=== PATIENT | female | born 1950 | race Caucasian/White ===

== ENCOUNTER 2017-08-07 20:29 | Emergency (ER) | payer MEDICARE, BC ==
[~2017-08-07] VITALS: Ht 157.5 cm; Wt 93.9 kg
[2017-08-07 20:58] VITALS: BP 161/101
[2017-08-07] MEDS ORDERED: ONDANSETRON PF 4 MG/2 ML VIAL. ONE (21:23)
[2017-08-07 22:18] LABS: BASO % 0 % (0-3); EOS # 0.1 x10^3/uL (0.0-0.7); EOS % 1 % (0-3); HEMOGLOBIN 14.1 g/dL (12.0-15.5); LYMPH # 2.2 x10^3/uL (1.0-4.8); LYMPH % 25 % (24-48); MEAN CORPUSCULAR HEMOGLOBIN 29 pg (25-35); MEAN CORPUSCULAR HGB CONC 34 g/dL (31-37); MEAN CORPUSCULAR VOLUME 88 fL (79-100); MONO # 0.5 x10^3/uL (0.0-1.1); MONO % 5 % (0-9); NEUT % 68 % (31-73); PLATELET COUNT 237 x10^3/uL (140-400); RED BLOOD COUNT 4.79 x10^6/uL (3.50-5.40); RED CELL DISTRIBUTION WIDTH 13.6 % (11.5-14.5); WHITE BLOOD COUNT 8.8 x10^3/uL (4.0-11.0)
[2017-08-07 22:34] LABS: ALBUMIN 3.5 g/dL (3.4-5.0); CALCIUM 8.6 mg/dL (8.5-10.1); CREATININE 0.9 mg/dL (0.6-1.0); GFR 62.1; POTASSIUM 3.4 mmol/L (3.5-5.1); TOTAL BILIRUBIN 0.1 mg/dL (0.2-1.0); TOTAL PROTEIN 7.1 g/dL (6.4-8.2)
--- NOTE | 2017-08-07 22:52 | PHYS DOC ---
General Chief Complaint: NAUSEA/VOMITING/DIARRHEA Stated Complaint: N/V LIGHT HEADED Time Seen by MD: 20:34 Problems: History of Present Illness Allergies: Coded Allergies: No Known Drug Allergies (Unverified , 08/07/17) Orders, Labs, Meds EKG: Normal sinus rhythm 72 bpm, leftward axis no ST elevation. Interpreted by me. Urine dipstick: Positive for leukocyte esterase and trace of blood Departure Time of Disposition: 00:52 Disposition: 01 HOME, SELF-CARE Diagnosis: UTI, hypokalemia Condition: IMPROVED Patient Instructions: Hypokalemia-Brief, Urinary Tract Infection, [id number] Additional Instructions: Please review the patient education materials given by ED staff. Aggressive hydration to prevent dehydration. ED one banana daily until follow-up with your doctor. Prescription: Cipro Follow-up with your doctor in 7-10 days for recheck of symptoms and urine culture results. Return to ED with new or changing symptoms. KEYLA GUERRA DO Aug 07, 2017 22:52
[2017-08-08] MEDS ORDERED: POTASSIUM CHLORIDE 20 MEQ TABLET.ER. PO ONE
[2017-08-08] MEDS ORDERED: CIPR500T94 PO (00:51)
[2017-08-08 01:04] LABS: BILIRUBIN,URINE NEG (NEG); CLARITY,URINE HAZY; COLOR,URINE YELLOW; GLUCOSE,URINE NEG (NEG); NITRITE,URINE NEG (NEG); UROBILINOGEN,URINE 0.2 mg/dL (0.2 mg/dL)
[2017-08-08 01:05] LABS: BACTERIA,URINE FEW /HPF (0-FEW); RBC,URINE 0 /HPF (0-2); SQUAMOUS EPITHELIAL CELL,UR FEW /LPF
[2017-08-08] MEDS ORDERED: CIPROFLOXACIN HCL 500 MG TABLET PO ONE (01:15)
--- NOTE | 2017-08-08 07:45 | EKG ---
[address] [address] Test Date: 2017-08-07 Test Time: 22:17:07 Pat Name: YASIR CAREY Department: Room: Gender: F Fur Sewer: BERNADINE : 1950 Requested By: KEYLA GUERRA Order Number: [id number] Reading MD: Measurements Intervals [place] Rate: 67 P: 33 KS: 192 QRS: -6 QRSD: 86 T: 14 QT: 416 QTc: 443 Interpretive Statements SINUS RHYTHM LEFTWARD AXIS R-S TRANSITION ZONE IN V LEADS DISPLACED TO THE LEFT OTHERWISE NORMAL ECG RI6.01 Unconfirmed report No previous ECG available for comparison
--- NOTE | 2017-08-08 07:56 | RAD ---
Chest, 2 views, 08/07/2017: History: Dizziness, nausea The heart size and pulmonary vascularity are normal. There is mild tortuosity of the thoracic aorta. No pulmonary infiltrates are seen. There is no evidence of pleural fluid. IMPRESSION: No acute cardiopulmonary abnormality is detected.
== END 2017-08-08 01:12 | disposition home or self-care (01) ==
LOC: ER 20:29
DX: N39.0 Urinary tract infection, site not specified (principal); E87.6 Hypokalemia
CPT/HCPCS: 36415; 71020; 80053; 81001; 82550; 83735; 83880; 84484; 85025; 85379; 87086; 93005; 99285-25

== ENCOUNTER → 2020-05-22 | Outpatient (CLI) | payer MEDICARE, BC ==
[~2020-05-22] MED LIST: CIPR500T94 PO
--- NOTE | 2020-05-27 08:39 | RAD ---
DATE: 05/22/2020 8:53 AM EXAM: MAMMO DONALD SCREENING BILATERAL HISTORY: Screening COMPARISON: 01/11/2019 Bilateral CC and MLO views of the breasts were performed. Bilateral breast tomosynthesis was performed in CC and MLO projections. This study was interpreted with the benefit of Computerized Aided Detection (CAD). FINDINGS: Breast Density: FATTY The Breast Parenchyma is primarily fatty replaced. Breast parenchyma level density A. No suspicious masses, microcalcifications or architectural distortion is present to suggest malignancy in either breast. The visualized axillae are unremarkable. IMPRESSION: No mammographic evidence of malignancy. BI-RADS CATEGORY: 1 NEGATIVE RECOMMENDED FOLLOW-UP: 12M 12 MONTH FOLLOW-UP Annual screening mammography is recommended, unless clinically indicated sooner based on symptoms or change in physical exam. PQRS compliance statement: Patient information was entered into a reminder system with a target due date for the next mammogram. Mammography is a sensitive method for finding small breast cancers, but it does not detect them all and is not a substitute for careful clinical examination. A negative mammogram does not negate a clinically suspicious finding and should not result in delay in biopsying a clinically suspicious abnormality. "Our facility is accredited by the [employer] Mammography [employer]."
== END ==
LOC: MAMMO 08:45
PROVIDERS: ATTEND Obstetrics & Gynecology
DX: Z12.31 Encounter for screening mammogram for malignant neoplasm of breast (principal)
CPT/HCPCS: 77063; 77067

== ENCOUNTER 2021-04-17 13:37 | Emergency (ER) | payer MEDICARE, BC ==
[~2021-04-17] VITALS: Ht 157.5 cm; Wt 93.2 kg
[2021-04-17 13:58] VITALS: BP 161/92
--- NOTE | 2021-04-17 14:04 | PHYS DOC ---
Past History Past Medical History: No Pertinent History (LEROY WHITE APRN) Alcohol Use: None Drug Use: None (LEROY WHITE APRN) General Adult EDM: Chief Complaint: MECHANICAL FALL HPI: HPI: Patient is a 70-year-old female who presents to the ER following a fall that occurred yesterday. Patient reports she was walking up 2 steps and she fell backwards and hit the back of her head on concrete floor. Patient denies any loss of consciousness. She denies being on any blood thinners. She is reporting right rib pain, right elbow pain and generalized hospital head pain. Patient denies loss of bowel or bladder, confusion or altered mental status, saddle anesthesias, vision changes, nausea, vomiting. (LEROY WHITE APRN) Review of Systems: Review of Systems: 14 body systems of the review of systems have been reviewed. See HPI for pertinent positive and negative responses, otherwise all other systems are n egative, nonpertinent or noncontributory (LEROY WHITE APRN) Allergies: Allergies: Allergies Coded Allergies Type Severity Reaction Last Updated Verified No Known Drug Allergies 08/07/17 No (LEROY WHITE APRN) Physical Exam: PE: Constitutional: Well developed, well nourished, no acute distress, non-toxic appearance. [] HENT: Normocephalic, atraumatic,, no hematomas noted, no lacerations or wounds bilateral external ears normal, oropharynx moist, no oral exudates, nose normal. [] Eyes: PERRLA, EOMI, conjunctiva normal, no discharge. [] Neck: Normal range of motion, no bony spinal tenderness, supple, no stridor. [] Cardiovascular:Heart rate regular rhythm, no murmur [] Lungs & Thorax: Bilateral breath sounds clear to auscultation, pain with palpation noted to anterior right rib, no crepitus, no flail chest, no obvious deformities, no ecchymosis or wounds [] Abdomen: Bowel sounds normal, soft, no tenderness, no masses, no pulsatile masses. [] Skin: Warm, dry, no erythema, no rash. [] Back: No bony spinal tenderness with palpation, normal range of motion Extremities: No tenderness, no cyanosis, no clubbing, ROM intact, no edema. Right upper extremity: pain with palpation of right elbow, no swelling, no wounds, no obvious deformity, range of motion intact, neurovascularly intact [] Neurologic: Alert and oriented X 3, normal motor function, normal sensory function, no focal deficits noted. [] Psychologic: Affect normal, judgement normal, mood normal. [] (LEROY WHITE APRN) EKG: EKG: [] (LEROY WHITE APRN) Radiology/Procedures: Radiology/Procedures: PROCEDURE: RIBS BILAT 3V Exam: Bilateral ribs 2 views with AP chest INDICATION: Fall, rib pain TECHNIQUE: Frontal view of the chest with frontal and oblique views of the right and left ribs Comparisons: None FINDINGS: The cardiomediastinal silhouette and pulmonary vessels are within normal limits. The lung and pleural spaces are clear. No displaced rib fractures are identified. Several air-filled distended loops of small bowel in the visualized upper abdomen IMPRESSION: 1. No acute cardiopulmonary process. 2. No displaced rib fractures 3. Several air-filled distended loops of small bowel in the visualized upper abdomen. Correlate with symptomatology Electronically signed by: Daksha Madison MD (04/17/2021 4:21 PM) [facility] DICTATED AND SIGNED BY: DAKSHA MADISON MD DATE: 04/17/21 1619 CC: LEROY WHITE APRN; JERSON FELDER MD ~MTH0 0 []PROCEDURE: CT HEAD AND CERVICAL SPINE WO Exam Date: 04/17/2021 2:[address] HEAD AND C-SPINE WO Indication: Reason: fall / Spl. Instructions: / History: . One or more of the following dose reduction techniques were utilized: *Automated exposure control (AEC) *Adjustment of mA and/or kV according to patient size *Use of iterative reconstruction technique *CT scan done according to ALARA, or ALARA/IMAGE GENTLY EXAMINATION: CT OF THE HEAD WITHOUT CONTRAST INDICATION: Trauma, head injury, headache; TECHNIQUE: Noncontrast helical axial CT images of the head were obtained. FINDINGS: The ventricles and sulci are normal for the patient's stated age. There is no evidence of acute intracranial hemorrhage, extra-axial collection, mass effect, midline shift, or acute territorial infarct. No lesion of the skull base or the calvarium is seen. The visualized paranasal sinuses, mastoid air cells, and orbits are normal in appearance. IMPRESSION: No evidence for acute intracranial abnormality. EXAMINATION: CT OF THE CERVICAL SPINE WITHOUT CONTRAST Clinical Indication: Cervical spine pain after trauma Technique: Thin cut helical axial CT images through the cervical spine were obtained without contrast on a multi-detector CT scanner. Source data was then reconstructed into sagittal and coronal planes. Findings: Alignment is maintained without spondylolisthesis. Vertebral body heights are maintained without acute fracture. Mild multilevel degenerative changes are noted. No significant prevertebral soft tissue swelling is demonstrated. No severe osseous central canal stenosis is seen. Thyroid gland appears heterogeneously hypodense, likely secondary to underlying thyroid nodules. Impression: No evidence of acute cervical spine fracture or subluxation. Heterogeneous hypodense thyroid gland likely contains underlying thyroid nodules. Further thyroid workup and/or imaging can be performed as clinically indicated. Electronically signed by: Lukas Denney MD (04/17/2021 3:07 PM) [facility] DI[facility]ATED AND SIGNED BY: LUKAS DENNEY MD DATE: 04/17/21 1455 CC: LEROY WHITE APRN; JERSON FELDER MD ~MTH0 0 PROCEDURE: ELBOW RIGHT 3V Exam: Right elbow 2 views INDICATION: Fall, pain TECHNIQUE: Frontal, and lateral views of the right elbow Comparisons: None FINDINGS: Bone mineralization is normal. No acute or healed fractures. Soft tissues are unremarkable. Joint spaces are well-maintained. IMPRESSION: No acute osseous abnormality of the right elbow. Electronically signed by: Daksha Madison MD (04/17/2021 4:25 PM) [facility] DICTATED AND SIGNED BY: DAKSHA MADISON MD DATE: 04/17/21 1621 CC: LEROY WHITE APRN; JERSON FELDER MD ~MTH0 0 (LEROY WHITE APRN) Heart Score: C/O Chest Pain: No Risk Factors: Risk Factors: DM, Current or recent (<one month) smoker, HTN, HLP, family history of CAD, obesity. Risk Scores: Score 0 - 3: 2.5% MACE over next 6 weeks - Discharge Home Score 4 - 6: 20.3% MACE over next 6 weeks - Admit for Clinical Observation Score 7 - 10: 72.7% MACE over next 6 weeks - Early Invasive Strategies (LEROY WHITE APRN) Course & Med Decision Making: Course & Med Decision Making Pertinent Labs and Imaging studies reviewed. (See chart for details) [] Patient is a 70-year-old female being seen in the ER following a fall. Patient is complaining of right rib pain, right elbow pain, generalized head pain. Work-up in the ER consisted of CT scan of head, right elbow x-ray, rib x- ray. Imaging was negative for any acute findings in the ER. Patient advised to take Tylenol/ibuprofen at home and follow-up with her primary care provider. I discussed with patient all findings and diagnostic testing as well as the need to follow-up with PCP for further evaluation and treatment or return to the ER if any new or worsening symptoms. Strict return precautions were also discussed at length. Patient voiced understanding and agreement with the plan. Patient is hemodynamically stable at the time of disposition. (LEROY WHITE APRN) Dragon Disclaimer: Dragon Disclaimer: This electronic medical record was generated, in whole or in part, using a voice recognition dictation system. (LEROY WHITE APRN) Attending Co-Sign The patient was seen and interviewed as well as examined at the bedside. The chart was reviewed. The case was discussed. Agree with the plan of care. (EILEEN ORTEGA DO) Departure Departure: Impression: Primary Impression: Fall Qualified Codes: W19.XXXA - Unspecified fall, initial encounter Disposition: HOME / SELF CARE / HOMELESS Condition: GOOD Referrals: JERSON FELDER MD (PCP) Patient Instructions: Fall Prevention and Home Safety, Rib Contusion Additional Instructions: You were seen in the ER following a fall. Imaging was negative in the ER for any acute findings. You can apply ice to any painful areas and take Tylenol/ibuprofen for pain. Please follow-up with your primary care provider on Monday regarding your ER visit. If you develop worsening of your pain, confusion, inability to bear weight or ambulate, shortness of breath, chest pain, intractable nausea or vomiting, vision changes or any new or worsening symptoms please return to the ER. EMERGENCY DEPARTMENT GENERAL DISCHARGE INSTRUCTIONS Thank you for coming to [facility] (ED) today and trusting us with you care. We trust that you had a positivie experience in our Emergency Department. If you wish to speak to the department management, you may call the director at [phone]. YOUR FOLLOW UP INSTRUCTIONS ARE FOLLOWS: 1. Do you have a private Doctor? If you do not have a private doctor, please ask for a resource list of physicians or clinics that may be able to assist you with follow up care. 2. The Emergency Physician has interpreted your x-rays. The X-Ray specialist will also review them. If there is a change in the findings, you will be notified in 48 hours when at all possible. 3. A lab test or culture has been done, your results will be reviewed and you will be notified if you need a change in treatment. ADDITIONAL INSTRUCTIONS AND INFORMATION: 1. Your care today has been supervised by a physician who is specially trained in emergency care. Many problems require more than one evaluation for a complete diagnosis and treatment. We recommend that you schedule your follow up appointment as recommended to ensure complete treatment of you illness or injury. If you are unable to obtain follow up care and continue to have a problem, or if your condition worsens, we recommend that you return to the ED. 2. We are not able to safely determine your condition over the phone nor are we able to give sound medical advice over the phone. For these safety reasons, if you call for medical advice we will ask you to come to the ED for further evaluation. 3. If you have any questions regarding these discharge instructions please call the ED at [phone]. SAFETY INFORMATION: In the interest of safety, wellness, and injury prevention; we encourage you to wear your sealbelt, if you smoke; quite smoking, and we encourage family to use a protective helmet for bicycling and other sporting events that present an increased risk for head injury. IF YOUR SYMPTOMS WORSEN OR NEW SYMPTOMS DEVELOP, OR YOU HAVE CONCERNS ABOUT YOUR CONDITION; OR IF YOUR CONDITION WORSENS WHILE YOU ARE WAITING FOR YOUR FOLLOW UP APPOINTMENT; EITHER CONTACT YOUR PRIMARY CARE DOCTOR, THE PHYSICIAN WHOSE NAME AND NUMBER YOU WERE GIVEN, OR RETURN TO THE ED IMMEDIATELY. LEROY WHITE APRN Apr 17, 2021 14:04 EILEEN ORTEGA DO Apr 18, 2021 06:25
--- NOTE | 2021-04-17 15:10 | RAD ---
Exam Date: 04/17/2021 2:[address] HEAD AND C-SPINE WO Indication: Reason: fall / Spl. Instructions: / History: . One or more of the following dose reduction techniques were utilized: *Automated exposure control (AEC) *Adjustment of mA and/or kV according to patient size *Use of iterative reconstruction technique *CT scan done according to ALARA, or ALARA/IMAGE GENTLY EXAMINATION: CT OF THE HEAD WITHOUT CONTRAST INDICATION: Trauma, head injury, headache; TECHNIQUE: Noncontrast helical axial CT images of the head were obtained. FINDINGS: The ventricles and sulci are normal for the patient's stated age. There is no evidence of acute int racranial hemorrhage, extra-axial collection, mass effect, midline shift, or acute territorial infarc t. No lesion of the skull base or the calvarium is seen. The visualized paranasal sinuses, mastoid ai r cells, and orbits are normal in appearance. IMPRESSION: No evidence for acute intracranial abnormality. EXAMINATION: CT OF THE CERVICAL SPINE WITHOUT CONTRAST Clinical Indication: Cervical spine pain after trauma Technique: Thin cut helical axial CT images through the cervical spine were obtained without contrast on a multi-detector CT scanner. Source data was then reconstructed into sagittal and coronal planes. Findings: Alignment is maintained without spondylolisthesis. Vertebral body heights are maintained without acute fracture. Mild multilevel degenerative changes ar e noted. No significant prevertebral soft tissue swelling is demonstrated. No severe osseous central canal stenosis is seen. Thyroid gland appears heterogeneously hypodense, likely secondary to underly ing thyroid nodules. Impression: No evidence of acute cervical spine fracture or subluxation. Heterogeneous hypodense thyroid gland likely contains underlying thyroid nodules. Further thyroid wo rkup and/or imaging can be performed as clinically indicated. Electronically signed by: Archie Denney MD (04/17/2021 3:07 PM) [facility]
--- NOTE | 2021-04-17 16:23 | RAD ---
Exam: Bilateral ribs 2 views with AP chest INDICATION: Fall, rib pain TECHNIQUE: Frontal view of the chest with frontal and oblique views of the right and left ribs Comparisons: None FINDINGS: The cardiomediastinal silhouette and pulmonary vessels are within normal limits. The lung and pleural spaces are clear. No displaced rib fractures are identified. Several air-filled distended loops of small bowel in the visualized upper abdomen IMPRESSION: 1. No acute cardiopulmonary process. 2. No displaced rib fractures 3. Several air-filled distended loops of small bowel in the visualized upper abdomen. Correlate with symptomatology Electronically signed by: Daksha Crowell MD (04/17/2021 4:21 PM) [facility]
--- NOTE | 2021-04-17 16:27 | RAD ---
Exam: Right elbow 2 views INDICATION: Fall, pain TECHNIQUE: Frontal, and lateral views of the right elbow Comparisons: None FINDINGS: Bone mineralization is normal. No acute or healed fractures. Soft tissues are unremarkable. Joint spa eileen are well-maintained. IMPRESSION: No acute osseous abnormality of the right elbow. Electronically signed by: Daksha Crowell MD (04/17/2021 4:25 PM) [facility]
== END 2021-04-17 16:45 | disposition home or self-care (01) ==
LOC: ER 13:37
DX: R07.81 Pleurodynia (principal); M25.521 Pain in right elbow; R51.9 Headache, unspecified; W18.09XA Striking against other object with subsequent fall, initial encounter; Y93.01 Activity, walking, marching and hiking; Y92.89 Other specified places as the place of occurrence of the external cause; Y99.8 Other external cause status
CPT/HCPCS: 70450; 71110; 72125; 73080; 99285-25

== ENCOUNTER 2021-07-09 10:28 | Emergency (ER) | payer MEDICARE, BC ==
[~2021-07-09] VITALS: Ht 157.5 cm; Wt 93.2 kg
--- NOTE | 2021-07-09 13:00 | PHYS DOC ---
Past History Past Medical History: No Pertinent History Additional Past Medical Histor: osteoporosis (LEROY WHITE APRN) Past Surgical History: Other Additional Past Surgical Histo: bladder (LEROY WHITE APRN) Alcohol Use: None Drug Use: None (LEROY WHITE APRN) General Adult EDM: Chief Complaint: OTHER COMPLAINTS HPI: HPI: Patient is a 71-year-old female who presents to the emergency department requesting a Covid test. She reports that 2 days ago her was admitted for COVID-19 and . She denies any cough, fever, shortness of breath, nausea, vomiting, chest pain, loss of taste or smell. Patient's vital signs are stable and she is in no acute distress. (LEROY WHITE APRN) Review of Systems: Review of Systems: 14 body systems of the review of systems have been reviewed. See HPI for pertinent positive and negative responses, otherwise all other systems are negative, nonpertinent or noncontributory (LEROY WHITE APRN) Allergies: Allergies: Allergies Coded Allergies Type Severity Reaction Last Updated Verified No Known Drug Allergies 07/09/21 No (LEROY WHITE APRN) Physical Exam: PE: Constitutional: Well developed, well nourished, no acute distress, non-toxic ap pearance. [] HENT: Normocephalic, atraumatic, bilateral external ears normal, oropharynx moist, no oral exudates, nose normal. [] Eyes: PERRL, EOMI, conjunctiva normal, no discharge. [] Neck: Normal range of motion, no stridor Cardiovascular:Heart rate regular rhythm, no murmur [] Lungs & Thorax: Bilateral breath sounds clear to auscultation [] Abdomen: Bowel sounds normal, soft, no tenderness, no masses, no pulsatile masses. [] Skin: Warm, dry, no erythema, no rash. [] Back: Normal range of Motion Extremities: No tenderness, no cyanosis, no clubbing, ROM intact, no edema. [] Neurologic: Alert and oriented X 3, normal motor function, normal sensory function, no focal deficits noted. [] Psychologic: Affect normal, judgement normal, mood normal. [] (LEROY WHITE APRN) Current Patient Data: Labs: Laboratory Tests Test 07/09/21 11:53 SARS-CoV-2 Antigen (Rapid) Negative (NEGATIVE) Vital Signs: Vital Signs Date Time Temp Pulse Resp B/P (MAP) Pulse Ox O2 Delivery O2 Flow Rate FiO2 07/09/21 10:59 85 18 149/96 (113) 97 Room Air (LEROY WHITE APRN) EKG: EKG: [] (LEROY WHITE APRN) Radiology/Procedures: Radiology/Procedures: [] (LEROY WHITE APRN) Heart Score: C/O Chest Pain: No Risk Factors: Risk Factors: DM, Current or recent (<one month) smoker, HTN, HLP, family history of CAD, obesity. Risk Scores: Score 0 - 3: 2.5% MACE over next 6 weeks - Discharge Home Score 4 - 6: 20.3% MACE over next 6 weeks - Admit for Clinical Observation Score 7 - 10: 72.7% MACE over next 6 weeks - Early Invasive Strategies (LEROY WHITE APRN) Course & Med Decision Making: Course & Med Decision Making Pertinent Labs and Imaging studies reviewed. (See chart for details) [] Patient resents the emergency department for a Covid test. Patient had a positive Covid exposure. Patient is asymptomatic. Patient tested for COVID-19 in the ER and it was negative. Patient advised to refer to CDC guidelines regarding positive exposures and isolation protocols. I discussed with patient all findings and diagnostic testing as well as the need to follow-up with PCP for further evaluation and treatment or return to the ER if any new or worsening symptoms. Strict return precautions were also discussed at length. Patient voiced understanding and agreement with the plan. Patient is hemodynamically stable at the time of disposition. (LEROY WHITE APRN) Dragon Disclaimer: Dragon Disclaimer: This electronic medical record was generated, in whole or in part, using a voice recognition dictation system. (LEROY WHITE APRN) Attending Co-Sign The patient was seen and interviewed as well as examined at the bedside. The chart was reviewed. The case was discussed. Agree with the plan of care. (EILEEN ORTEGA DO) Departure Departure: Impression: Primary Impression: Person under investigation for COVID-19 Disposition: HOME / SELF CARE / HOMELESS Condition: GOOD Referrals: JERSON FELDER MD (PCP) Patient Instructions: Medical Screening Exam Additional Instructions: You are seen in the emergency department today for Covid test. Your rapid Covid test was negative, you had a he is here Covid test sent out and you will be notified of those results in a couple of days. Please refer to the CDC guidelines regarding self-isolation with a positive Covid exposure. Follow-up with your primary care provider regarding your ER visit. Return to the emergency department if you develop high fevers refractory to treatment, shortness of breath, chest pain, intractable nausea or vomiting or any new or worsening concerns. You have been tested for or diagnosed with COVID-19. It is an infection caused by a new type of coronavirus. COVID-19 will cause cold-like or mild flu symptoms in most. It can cause more severe symptoms like problems breathing in some. There is no treatment for COVID-19. The body will clear the infection over time. Self-care will help to ease discomfort. Steps to Take: Self-Care Rest as needed. Healthy habits may help you feel better. Steps include: Choose healthy foods including fruits and vegetables. Drink water throughout the day. Get plenty of sleep each night. If you smoke, try to quit. It may ease breathing. Avoid alcohol. Keep Others Healthy The virus can spread to others. Droplets are released every time you sneeze or cough. The droplets can get into the mouth, nose, or eyes of people near you and lead to infection. To lower the chances of spreading COVID-19 to others: Stay at home until your doctor has said it is safe to leave. If you tested positive this will mean staying isolated until both of the following are true: At least 7 days have passed since the start of illness. You are free of fever for at least 72 hours without the use of medicine. During this time: - Avoid public areas, events, or transportation. Do not return to work or school until your doctor has said it is safe to do so. - Call ahead if you need to go to a medical center. Let them know you may have COVID-19. It will help them guide you where to go. They may also ask you to wear a facemask when you come to the office. - If you call for emergency medical services, let them know you may have COVID- 19. While at home: - Try to avoid close contact with others. Stay about 6 feet away. - If possible, spend most of your time in a separate room from others. - Use a face mask if you will be in close contact with others such as sharing a room or vehicle. - Have someone wipe down common surfaces in the home. Use household residential installer every day on areas like doorknobs, counters, or sinks. - Cough or sneeze into a tissue. Throw the tissue away right after use. If a tissue is not available, cough or sneeze into your elbow. - Wash your hands often. Wash them after sneezing or coughing. Use soap and water and wash for at least 20 seconds. Alcohol based hand aircraft cleaner can be used if soap and water is not available. - Do not prepare food for others. Avoid sharing personal items like forks, spoons, or toothbrushes. - Avoid close contact with pets while you are sick. There is no evidence of the virus passing to pets. This is a safety step until more is known about this virus. Isolation can be frustrating. Social interaction can help. Keep in touch with friends and family through phone and tech options. You can still interact with others in your home, just keep a safe distance of about 6 feet. Follow-up: Your doctors office will check in with you to see if there are any changes in your health. You may be asked to keep track of symptoms to share with them. They will also let you know when you are clear to be in public again. Problems to Look Out For: Contact your doctor if your recovery is not going as you expect. Get emergency care if you have problems such as: - Trouble breathing - Nonstop chest pain or pressure - Changes in awareness, confusion, or problems waking - Lips or face have bluish color - Worsening of symptoms If you think you have an emergency, call for emergency medical services right away. As taken from Counts include 234 beds at the [facility] LEROY WHITE APRN Jul 09, 2021 13:00 EILEEN ORTEGA DO Jul 12, 2021 10:26
[2021-07-09 13:12] VITALS: BP 131/87
== END 2021-07-09 13:18 | disposition home or self-care (01) ==
LOC: ER 10:28
DX: R06.02 Shortness of breath (principal); Z20.822 Contact with and (suspected) exposure to COVID-19
CPT/HCPCS: 87426; 99283; C9803; U0003

== ENCOUNTER → 2021-07-30 | Outpatient (CLI) | payer MEDICARE, BC ==
[2021-07-09 13:12] VITALS: BP 131/87
--- NOTE | 2021-07-30 16:50 | RAD ---
DXA BONE DENSITY AXIAL History: Reason: FOLLOW UP OSTEOPENIAANDERSON X 4 YEARS / Spl. Instructions: / History: Postmenopaus al Comparison: November 01, 2011 TECHNIQUE: Dual energy x-ray absorptiometry of the lumbar spine and right hip was performed. T-score of average bone mineral density based was calculated based on standard deviations above or below the expected young adult normal value. Diagnostic definitions were established by the [employer] zation. FINDINGS: The average bone mineral density associated with L1-L4 is 1.282 g/cm^2, corresponding with a T-score of 0.9. Increased bone mineral density compared to prior. The average total bone mineral density associated with right hip is 0.927 g/cm^2, corresponding with a T-score of -0.2. Right femoral neck T score -0.3. Decreased bone density compared to prior. Refer to the worksheets for full detail. IMPRESSION: 1. Normal. Average bone mineral density yields a T-score of -1.0 or greater. Fracture risk is low. 2. Decreased bone mineral density within the right hip compared to prior. Electronically signed by: Roberto Covarrubias DO (07/30/2021 4:48 PM) [id number]
--- NOTE | 2021-07-30 17:12 | RAD ---
Bilateral digital screening 2-D and 3-D (digital breast tomosynthesis) mammogram: Reason for examination: Routine screening. Comparison: Mammograms from 05/22/2020 and 01/11/2019. Interpretation was made with the benefit of CAD. FINDINGS: Breast density: Category B. There are scattered areas of fibroglandular density. No suspicious breast mass, malignant appearing calcifications, or architectural distortion is seen. IMPRESSION: No evidence of malignancy. Assessment: BI-RADS 1. Negative. Recommendation: Routine screening mammograms. The patient will receive a letter with the results in the mail. Patient information will be entered i nto the mammography reminder system with a target recall date for the next mammogram. A reminder yuni er will be generated. Electronically signed by: Kimberlee Brown MD (07/30/2021 5:10 PM) [id number]
== END ==
LOC: MAMMO 10:18
PROVIDERS: ATTEND Obstetrics & Gynecology
DX: Z12.31 Encounter for screening mammogram for malignant neoplasm of breast (principal); M85.80 Other specified disorders of bone density and structure, unspecified site; N95.9 Unspecified menopausal and perimenopausal disorder
CPT/HCPCS: 77063; 77067; 77080